=== PATIENT | female | born 1995 | race American Indian/Alaskan Native ===

== ENCOUNTER 2018-07-10 13:55 | Emergency (ER) | payer SELFPAY ==
[2018-07-10 14:23] VITALS: BP 130/78
[2018-07-10] MEDS ORDERED: BICILLIN L-A IM ONE (14:28)
[2018-07-10] MEDS ORDERED: DECADRON IM ONE (14:28)
--- NOTE | 2018-07-10 14:30 | Emergency Department Report ---
Minor Respiratory - HPI Chief Complaint: Sore Throat Stated Complaint: SORE THROAT/BODY PAIN Time Seen by Provider: 07/10/18 14:26 Duration: 5 Days Pain Location: Throat Severity: moderate Minor Respiratory: Yes Sore Throat, Yes Able to Tolerate Fluids, No Rhinorrhea, No Ear Pain, No Cough, No Sick Contacts, No Hemoptysis, No Chest Pain, No Shortness of Breath, No Fever Other History: 22 YO WITH SORE THROAT AND URTI SYMPTOMS FOR SEVERAL DAYS. ED Review of Systems ROS: Stated complaint: SORE THROAT/BODY PAIN Other details as noted in HPI Comment: All other systems reviewed and negative Constitutional: denies: chills, fever Eyes: denies: eye pain ENT: as per HPI, throat pain Respiratory: denies: cough Cardiovascular: denies: dyspnea on exertion ED Past Medical Hx - Past Medical History Previous Medical History?: No - Surgical History Past Surgical History?: No - Social History Smoking Status: Never Smoker Substance Use Type: None - Medications Home Medications: Home Medications Medication Instructions Recorded Confirmed Last Taken Type Amoxicillin 500 mg PO BID #20 capsule 07/10/18 Unknown Rx Minor Respiratory Exam - Exam General: Vital signs noted. No distress. Alert and acting appropriately. HEENT: Yes Pharyngeal Erythema, Yes Pharyngeal Exudates, Yes Moist Mucous Membranes, No Rhinorrhea, No Conjuctival Injection, No Frontal Tenderness, No Maxillary Tenderness Ear: Neither TM Bulge, Neither TM Erythema, Neither EAC Pain, Neither EAC Discharge Neck: Yes Adenopathy, No Supple Lungs: Yes Good Air Exchange, No Wheezes, No Ronchi, No Stridor, No Cough, No Labored Respirations, No Retractions, No Use of Accessory Muscles, No Other Abnormal Lung Sounds Heart: Yes Regular, No Murmur Abdomen: Yes Normal Bowel Sounds, No Tenderness, No Peritoneal Signs Skin: No Rash, No Edema Neurologic: Alert and oriented, no deficits. Musculoskeletal: Unremarkable. ED Course Vital Signs 07/10/18 14:19 Temperature 97.4 F L Pulse Rate 98 H Respiratory 18 Rate Blood Pressure 130/78 O2 Sat by Pulse 100 Oximetry ED Medical Decision Making - Medical Decision Making EXUDATES BILATERAL PT STATES WAS TREATED A COUPLE WEEKS AGO. I SUSPECT SHE DID NOT TAKE MEDS. MALODOROUS EXUDATES BILATERAL FOLLOW UP PROVIDED - Differential Diagnosis URTI Critical care attestation.: If time is entered above; I have spent that time in minutes in the direct care of this critically ill patient, excluding procedure time. ED Disposition Clinical Impression: Exudative pharyngitis Disposition: DC- TO HOME OR SELFCARE Is pt being admited?: No Does the pt Need Aspirin: No Condition: Stable Instructions: Pharyngitis (ED) Additional Instructions: MEDS ORDERED TODAY FOLLOW UP PCP REFERRAL BELOW MOTRIN OR TYLENOL FOR PAIN OR FEVER HYDRATE WELL WITH WATER Prescriptions: Amoxicillin 500 mg PO BID #20 capsule Referrals: [facility] [Outside] - 3-5 Days Time of Disposition: 14:29
== END 2018-07-10 15:33 | disposition home or self-care (01) ==
LOC: ED 13:55
DX: J02.9 Acute pharyngitis, unspecified (principal)
CPT/HCPCS: 96372; 99281; J0561; J1100